=== PATIENT | male | born 1945 | race American Indian/Alaskan Native ===

== ENCOUNTER 2020-07-07 09:02 | Emergency (ER) | payer OTHER ==
--- NOTE | 2020-07-07 10:13 | Emergency Department Report ---
HPI - General Chief Complaint: Seizure Time Seen by Provider: 07/07/20 09:37 - HPI HPI: Room 7 Patient is a 75-year-old male present with chief complaint of seizure. Patient was reportedly at work eating when he fell to the ground had a generalized ton ic-clonic seizure lasting 2 minutes. The patient states he does not believe he had a seizure. When asked what happened today the patient states he only had 3 hours of sleep last night and today he was eating and "nodding out" and then went to sleep. The patient states he awakened on the stretcher with EMS. Patient reportedly had a similar episode 5 months ago. Patient denies taking any antiepileptics. Patient currently denies complaints ED Past Medical Hx - Past Medical History Previous Medical History?: No Hx Seizures: Yes - Surgical History Past Surgical History?: No - Family History Family history: no significant - Social History Smoking Status: Never Smoker Substance Use Type: None (Denies illicit drug use) - Medications Home Medications: Home Medications Medication Instructions Recorded Confirmed Last Taken Type levETIRAcetam [Keppra TAB] 500 mg PO BID #60 tablet 07/07/20 Unknown Rx ED Review of Systems ROS: Stated complaint: SEIZURE Other details as noted in HPI Constitutional: no symptoms reported Eyes: denies: eye pain ENT: denies: throat pain Respiratory: no symptoms reported Cardiovascular: denies: chest pain Endocrine: no symptoms reported Gastrointestinal: denies: abdominal pain Musculoskeletal: denies: back pain Neurological: denies: headache Physical Exam - Physical Exam Vital Signs: Vital Signs 07/07/20 09:04 Temperature 98.2 F Pulse Rate 97 H Respiratory 22 Rate Blood Pressure 173/85 O2 Sat by Pulse 95 Oximetry Physical Exam: GENERAL: The patient is well-developed well-nourished male lying on stretcher not appearing to be in acute distress. [] HEENT: Normocephalic. Atraumatic. Extraocular motions are intact. Patient has moist mucous membranes. NECK: Supple. Trachea midline CHEST/LUNGS: Clear to auscultation. There is no respiratory distress noted. HEART/CARDIOVASCULAR: Regular. There is no tachycardia. There is no gallop rub or murmur. ABDOMEN: Abdomen is soft, nontender. Patient has normal bowel sounds. There is no abdominal distention. SKIN: There is no rash. There is no edema. There is no diaphoresis. NEURO: The patient is awake, alert, and oriented. The patient is cooperative. The patient has no focal neurologic deficits. The patient has normal speech. Cranial nerves II through XII grossly intact. GCS 15 MUSCULOSKELETAL: There is no evidence of acute injury. ED Course Vital Signs 07/07/20 09:04 Temperature 98.2 F Pulse Rate 97 H Respiratory 22 Rate Blood Pressure 173/85 O2 Sat by Pulse 95 Oximetry ED Medical Decision Making - Lab Data Result diagrams: 07/07/20 10:13 07/07/20 10:13 Laboratory Tests 07/07/20 07/07/20 07/07/20 10:13 10:13 Unknown WBC 9.1 RBC 4.56 Hgb 13.4 Hct 39.4 MCV 87 MCH 29 MCHC 34 RDW 14.3 Plt Count 179 Lymph % (Auto) 8.1 L [place] % (Auto) 4.9 Eos % (Auto) 0.5 Baso % (Auto) 0.3 Lymph # (Auto) 0.7 L [place] # (Auto) 0.5 Eos # (Auto) 0.0 Baso # (Auto) 0.0 Seg Neutrophils % 86.2 H Seg Neutrophils # 7.9 H Sodium 136 L Potassium 4.8 Chloride 101.0 Carbon Dioxide 25 Anion Gap 15 BUN 19 Creatinine 1.3 Estimated GFR > 60 BUN/Creatinine Ratio 15 Glucose 95 Calcium 8.4 Magnesium 2.40 H Total Creatine Kinase 350 H Urine Opiates Screen Negative Urine Methadone Screen Negative Ur Barbiturates Screen Negative Ur Phencyclidine Scrn Negative Ur Amphetamines Screen Negative U Benzodiazepines Scrn Negative Urine Cocaine Screen Negative U Marijuana (THC) Screen Negative Drugs of Abuse Note Disclamer - Radiology Data Radiology results: report reviewed (CT head), image reviewed (CT head) [facility] [address] [place] [address] Cat Scan Report Signed Patient: SHERIF DICK MR#: [id number] 3 : 1945 Acct:[id number] Age/Sex: 75 / M ADM Date: 07/07/20 Loc: ED Attending Dr: Ordering Physician: JAKOB BURRIS MD Date of Service: 07/07/20 Procedure(s): CT head/brain wo con Accession Number(s): [id number] cc: JAKOB BURRIS MD CT head/brain wo con INDICATION: Seizure. TECHNIQUE: All CT scans at this location are performed using CT dose reduction for ALARA by means of automated exposure control. COMPARISON: None available. FINDINGS: There is no evidence of hemorrhage, hydrocephalus, brain edema, or mass effect/mass lesion. There are generalized changes of advancing age with age-commensurate generalized ventricular and cisternal/sulcal prominence without superimposed focal brain atrophy. 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 These findings are not unexpected for the patient's age.. The included paranasal sinuses and mastoid air cells are clear. The orbits appear unremarkable. IMPRESSION: 1. No acute intracranial abnormality. Signer Name: Lamonte Jacome MD Signed: 07/07/2020 10:45 AM Workstation Name: [id number] Transcribed By: PUJA Dictated By: Lamonte Jacome MD Electronically Authenticated By: Lamonte Jacome MD Signed Date/Time: 07/07/20 104 DD/ 1044 TD/TT: Print Cancel - Differential Diagnosis Seizure Critical care attestation.: If time is entered above; I have spent that time in minutes in the direct care of this critically ill patient, excluding procedure time. ED Disposition Clinical Impression: Seizure Disposition: DC-01 TO HOME OR SELFCARE Is pt being admited?: No Does the pt Need Aspirin: No Condition: Stable Instructions: Seizure, Adult, [id number] Additional Instructions: It is important that you do not drive, operate heavy machinery or swim unattended until you are cleared by a neurologist. Return to the emergency department should you develop worsening symptoms, inability to tolerate food or liquids, high fever or any other concerns Prescriptions: levETIRAcetam [Keppra TAB] 500 mg PO BID #60 tablet Referrals: PRIMARY CARE, [Primary Care Provider] - 3-5 Days SAM MORAN MD [Staff Physician] - [facility] (Dr. Moran is a neurologist. Please follow-up with him for further evaluation) Time of Disposition: 11:34
[2020-07-07 10:37] LABS: Basophils % (Auto) 0.3 % (0.0-1.8); Eosinophils % (Auto) 0.5 % (0.0-4.3); Hematocrit 39.4 % (35.5-45.6); Hemoglobin 13.4 gm/dl (11.8-15.2); Lymphocytes # (Auto) 0.7 K/mm3 (1.2-5.4); Lymphocytes % (Auto) 8.1 % (13.4-35.0); Mean Corpuscular HGB Conc 34 % (32-34); Mean Corpuscular Volume 87 fl (84-94); Monocytes # (Auto) 0.5 K/mm3 (0.0-0.8); Monocytes % (Auto) 4.9 % (0.0-7.3); Platelet Count 179 K/mm3 (140-440); Red Blood Count 4.56 M/mm3 (3.65-5.03); Red Cell Distribution Width 14.3 % (13.2-15.2)
--- NOTE | 2020-07-07 10:49 | Cat Scan Report ---
CT head/brain wo con INDICATION: Seizure. TECHNIQUE: All CT scans at this location are performed using CT dose reduction for ALARA by means of automated e xposure control. COMPARISON: None available. FINDINGS: There is no evidence of hemorrhage, hydrocephalus, brain edema, or mass effect/mass lesion. There are generalized changes of advancing age with age-commensurate generalized ventricular and cisternal/sul yadira prominence without superimposed focal brain atrophy. There are cerebral white matter changes cons istent with chronic leukoaraiosis. These findings are not unexpected for the patient's age.. The included paranasal sinuses and mastoid air cells are clear. The orbits appear unremarkable. IMPRESSION: 1. No acute intracranial abnormality. Signer Name: Lamonte Jacome MD Signed: 07/07/2020 10:45 AM Workstation Name: [id number]
[2020-07-07 10:54] LABS: BUN/Creatinine Ratio 15; Blood Urea Nitrogen 19 mg/dL (9-20); Calcium 8.4 mg/dL (8.4-10.2); Hemolysis Index 12
[2020-07-07] MEDS ORDERED: levETIRAcetam 1000 MG/NS 0.75% 1,000 MG/100 ML BAG IV ONE (11:00)
[2020-07-07 11:31] LABS: Amphetamine Screen,Urine Negative; Benzodiazepines Screen,Urine Negative; Cannabinoid Screen,Urine Negative; Cocaine Screen,Urine Negative; Methadone Screen,Urine Negative; Opiate Screen,Urine Negative
[2020-07-07 12:18] VITALS: BP 141/75
--- NOTE | 2020-07-09 09:51 | Electrocardiograph Report ---
[facility] Test Date: 2020-07-07 Test Time: 09:23:25 Pat Name: SHERIF DICK Department: Room: Gender: M [employer]: [place] : 1945 Requested By: JAKOB BURRIS Order Number: [id number] Reading MD: Grayson Marlow Measurements Intervals [place] Rate: 95 P: 58 IN: 153 QRS: 30 QRSD: 86 T: 82 QT: 363 QTc: 455 Interpretive Statements Sinus rhythm No previous ECG available for comparison Electronically Signed On 07-09-2020 9:50:47 EDT by Grayson Marlow
== END 2020-07-07 12:18 | disposition home or self-care (01) ==
LOC: ED 09:02
DX: R56.9 Unspecified convulsions (principal); Z79.899 Other long term (current) drug therapy
CPT/HCPCS: 36415; 70450; 80048; 80307; 82550; 83735; 85025; 93005; 96374; 99284; J1953